=== PATIENT | female | born 1985 | race Caucasian/White ===

== ENCOUNTER 2016-12-29 00:10 | Inpatient (IN) | payer OTHER ==
[2016-12-29] MEDS ORDERED: OLIVE OIL 118 ML BTL MISC PRN (00:58)
[2016-12-29] MEDS ORDERED: OXYTOCIN/RINGERS LACTATE 1,000 ML IV PRN (00:58)
[2016-12-29] MEDS ORDERED: TERBUTALINE SULFATE 1 MG/ML VIAL IV PRN (00:58)
[2016-12-29] MEDS ORDERED: EPSOM SALT 454 GM TP PRN (00:58)
[2016-12-29] MEDS ORDERED: LIDOCAINE 1% 30 ML SDV SC PRN (00:58)
--- NOTE | 2016-12-29 01:14 | OBPROG ---
OBG Progress Note Assessment/Plan: Assessment:clear fluid leaking vaginally exam 2-3/90/-2 cephalic irregular contractions feeling pain all in lower abdomen pain well managed discussed pitocin to assist with regular labor patient and family in agreement with poc abdomen soft on palpation elevated bp on admission denies PIH symptoms PIH labs completed on admission Plan:pitocin per protocol 12/29/16 01:12 12/29/16 01:15 Subjective: I am feeling ok. I can still walk and talk through my contractions. Nitrazine was positive. Amnisure sent. Clear fluid leaking after vaginal exam. - SVE Dilation (cm): 2 Effacement (%): 90 Station: -2 Current Contraction Pattern: Irregular FHR (bpm): 135 FHR Pattern Variability: Moderate FHR Category: 1 Membranes: SROM Amniotic Fluid Color: Clear - Physical Exam General Appearance: WD/WN, alert, no apparent distress Respiratory: chest non-tender, lungs clear, normal breath sounds Cardiac/Chest: regular rate, rhythm Abdomen: normal bowel sounds Membranes: SROM Amniotic Fluid Color: clear Extremities: normal range of motion, Tan's sign (negative bilaterally dtrs1+ bilaterally) DTR- Lower Extremities: Knee (R): 1+, Knee (L): 1+ Skin: normal color, warm/dry Neuro/Psych: no motor/sensory deficits, alert, normal mood/affect, oriented x 3 ICD10 Worksheet Patient Problems: Problems Problem Status Onset TERM LABOR PROM Acute
[2016-12-29] MEDS ORDERED: LIDOCAINE 1% 30 ML SDV ONE (01:20)
[2016-12-29] MEDS ORDERED: OLIVE OIL 118 ML BTL ONE (01:20)
[2016-12-29] MEDS ORDERED: TERBUTALINE SULFATE 1 MG/ML VIAL ONE (01:21)
[2016-12-29] MEDS ORDERED: OXYTOCIN 10 UNIT/ML VIAL ONE (01:21)
[2016-12-29] MEDS ORDERED: MISOPROSTOL 200 MCG TAB ONE (01:21)
[2016-12-29] MEDS ORDERED: AMMONIA AROMATIC 1 EACH AMP IH ONE (01:21)
[2016-12-29 01:23] LABS: % IMMATURE GRANULYOCYTES 0.9 % (0.0-1.1); ABSOLUTE IMMATURE GRANULOCYTES 0.13 10^3/uL (0.00-0.10); ADD DIFF? NO; ADD MORPH? NO; ADD SCAN? NO; ATYPICAL LYMPHOCYTE FLAG 0 (0-99); FRAGMENT RBC FLAG 0 (0-99); HEMATOCRIT 37.8 % (38.0-47.0); LEFT SHIFT FLG 0 (0-99); LIPEMIA HEMOLYSIS FLAG 90 (0-99); MEAN CELL HEMOGLOBIN 30.2 pg (27.9-34.1); MEAN CELL HEMOGLOBIN CONCENTR. 34.4 g/dL (32.4-36.7); MEAN CELL VOLUME 87.7 fL (81.5-99.8); MEAN PLATELET VOLUME 11.8 fL (8.7-11.7); PLATELET CLUMPS FLAG 0 (0-99); PLATELET COUNT 166 10^3/uL (150-400); RED BLOOD CELL COUNT 4.31 10^6/uL (4.18-5.33); RED CELL DISTRIBUTION WIDTH 12.9 % (11.5-15.2)
[2016-12-29] MEDS: LR 1,000 ML IV PRN ×2 (01:25→09:25)
[2016-12-29] MEDS ORDERED: OXYTOCIN/RINGERS LACTATE 500 ML IV SCH (01:30)
[2016-12-29 01:42] LABS: ALANINE AMINOTRANSFERASE 30 IU/L (9-52); ASPARTATE AMINOTRANSFERASE 30 IU/L (14-46); BILIRUBIN,TOTAL 0.6 mg/dL (0.1-1.4); BILIRUBIN-CONJUGATED 0.4 mg/dL (0.0-0.5); BILIRUBIN-UNCONJUGATED 0.2 mg/dL (0.0-1.1); CREATININE 0.6 mg/dL (0.6-1.0); GLOMERULAR FILTRATION RATE > 60; LACTATE DEHYDROGENASE 546 IU/L (313-618); URIC ACID 6.2 mg/dL (2.5-6.8)
--- NOTE | 2016-12-29 01:54 | GHP ---
[f rep st] HISTORY AND PHYSICAL DATE OF ADMISSION: 12/29/2016 The patient is a 31-year-old, 1, para 0, with an EDC of 01/05/2017 which gives her a gestati onal age of 39 weeks, who comes in with complaints of rupture of membranes since 1330 on 12/28/2016 with clear fluid. States feeling positive movement. Leaking clear fluid since 1330 on 2016, denies positive bloody show, but some pinkish mucus-like discharge. ALLERGIES: None. MEDICATIONS: Patient is taking is just vitamins. MEDICAL HISTORY: Patient has a previous history of sports-induced asthma, has increased BMI. SURGICAL HISTORY: Nedrow teeth extraction in high school, with no significant difficulties with gurwinder t. FAMILY HISTORY: Noncontributory. HISTORY: Elevated 1-hour GTT with 3-hour within normal limits. GYNECOLOGICAL HISTORY: Previous abnormal Pap in high school. Re-Paps since then have all been nega tive. Previous OCP use. LABS: Patient is O positive. Antibody negative. RPR is nonreactive. Rubella is immune. Hepatiti s is negative. HIV is negative. Trio screen was negative. Verifi was negative. Pap was within no rmal limits. Urine culture was within normal limits. Gonorrhea and chlamydia were negative. PHYSICAL EXAMINATION: GENERAL: The patient is awake, alert, oriented x3. LUNGS: Clear bilaterall y. ABDOMEN: Bowel sounds are positive in all 4 quadrants. Abdomen soft on palpation. EXTREMITIES : DTRs are 1+ bilaterally with no clonus and Homans sign is negative bilaterally. Elevated blood p ressures on admission. Denies PIH symptoms. ASSESSMENT: The patient is term in early labor, with spontaneous rupture of membranes at 1330 on . PLAN OF CARE: 1. PIH labs were drawn. 2. GBS negative. 3. Pitocin per protocol. 4. Discussed plan of care with patient and family, and received consent. 5. Expectant management of labor. 6. Consult Dr. Justina Matt as needed for plan of care. /[id number]/MODL
[2016-12-29] MEDS ORDERED: fentaNYL 2MCG/ML/BUP 0.1% RTU 100 ML BAG EP ONE (03:58)
[2016-12-29] MEDS ORDERED: PHENYLEPHRINE HCL 100 MCG/ML SYR IVP PRN (04:36)
--- NOTE | 2016-12-29 04:36 | PREANESOB ---
Obstetric Pre-Anesthesia Info - General Info Proposed Procedure: ARACELI : 1 Para: 0 - Info Status: Full Term, [place] Monitors: External FHR Pattern: Reassuring - Labor Status Cervical Dilation per last OB SVE: 2 Station per last OB SVE: -2 Amniotic Fluid Color: Clear PIH: No Magnesium Sulfate in Use: No Indications for Labor Analgesia: Pain Control Labor Epidural: Proposed Anesthesia Allergies/Adverse Reactions: Allergy/AdvReac Type Severity Reaction Status Date / Time No Known Allergies Allergy Unverified 07/06/16 07:15 Home Medications: Medication Instructions Recorded Vit27&Calcium/Iron/FA 1 tab PO DAILY 12/29/16 [] Visit Medications: Generic Name Dose Route Start Last Admin Trade Name Freq PRN Reason Stop Dose Admin Lactated Ringer's 1,000 mls @ 0 mls/hr 12/29/16 00:58 12/29/16 01:25 Lr IV 06/27/17 00:57 1,000 mls PRN PRN Administration SEE PROTOCOL CONDITIONS Protocol Per Protocol Oxytocin/Lactated Ringer's 1,000 mls @ 150 mls/hr 12/29/16 00:58 Pitocin 20 Units/Lr (Premix) IV PRN PRN Post- bleeding Oxytocin/Lactated Ringer's 500 mls @ 0 mls/hr 12/29/16 01:30 12/29/16 01:25 Pitocin 30 Units/Lr (Premix) IV 06/27/17 01:29 500 mls CONT ROBERT Administration Protocol Per Protocol Ibuprofen 600 mg 12/29/16 00:58 Motrin PO 06/27/17 00:57 Q6HRS PRN post , inflammation Lidocaine HCl 30 ml 12/29/16 00:58 Lidocaine Hcl 1% SC 06/27/17 00:57 ONCE PRN Episiotomy Magnesium Sulfate 454 gm 12/29/16 00:58 Epsom Salt TP 06/27/17 00:57 PRN PRN perineal discomfort [place] Oil 118 ml 12/29/16 00:58 Sweet Oil MISC 06/27/17 00:57 ONCE PRN preneal massage Terbutaline Sulfate 0.25 mg 12/29/16 00:58 Brethine IV 06/27/17 00:57 ONCE PRN Tachysystole Discontinued Medications Generic Name Dose Route Start Last Admin Trade Name Freq PRN Reason Stop Dose Admin Ammonia (Aromatic Spirit) Confirm 12/29/16 01:21 Ammonia Aromatic Administered 12/29/16 01:22 Dose 1 each IH .STK-MED ONE Ephedrine Sulfate Confirm 12/29/16 01:21 Ephedrine Sulfate Administered 12/29/16 01:22 Dose 50 mg .ROUTE .STK-MED ONE Fentanyl/Bupivacaine HCl Confirm 12/29/16 03:58 Fentanyl/Bupivacaine/Ns 2 Mcg/Ml 0.1% (Premix Administered 12/29/16 03:59 Dose 100 ml EP .STK-MED ONE Lidocaine HCl Confirm 12/29/16 01:20 Lidocaine Hcl 1% Administered 12/29/16 01:21 Dose 30 ml .ROUTE .STK-MED ONE Misoprostol Confirm 12/29/16 01:21 Cytotec Administered 12/29/16 01:22 Dose 1,000 mcg .ROUTE .STK-MED ONE [place] Oil Confirm 12/29/16 01:20 Sweet Oil Administered 12/29/16 01:21 Dose 118 ml .ROUTE .STK-MED ONE Oxytocin Confirm 12/29/16 01:21 Pitocin Administered 12/29/16 01:22 Dose 30 unit .ROUTE .STK-MED ONE Terbutaline Sulfate Confirm 12/29/16 01:21 Brethine Administered 12/29/16 01:22 Dose 1 mg .ROUTE .STK-MED ONE - Focused Exam Height/Weight (Nursing): Height 157.48 cm Weight 102.512 kg Labs: 12/29/16 01:15 12/29/16 01:00 Patient ABO/Rh O POSITIVE 12/29/16 01:15 Uric Acid 6.2 mg/dL (2.5-6.8) 12/29/16 01:00 Total Bilirubin 0.6 mg/dL (0.1-1.4) 12/29/16 01:00 Conjugated Bilirubin 0.4 mg/dL (0.0-0.5) 12/29/16 01:00 Unconjugated Bilirubin 0.2 mg/dL (0.0-1.1) 12/29/16 01:00 AST 30 IU/L (14-46) 12/29/16 01:00 ALT 30 IU/L (9-52) 12/29/16 01:00 Lactate Dehydrogenase 546 IU/L (313-618) 12/29/16 01:00
--- NOTE | 2016-12-29 04:44 | POSTANESTH ---
Post Anesthetic Evaluation Cardiovascular Status: Normal, Stable, Similar to Pre-Op Cond Respiratory Status: Normal, Stable, Similar to Pre-op Cond. Level of Consciousness/Mental Status: Can Participate in Eval, Alert and Oriented Pain Control: Adequate, Prn Tx Ordered Nausea/Vomiting Control: Adequate, Prn Tx Ordered Complications Possibly Related to Anesthesia: None Noted (Excellent analgesia.)
[2016-12-29] MEDS ORDERED: LR 500 ML IV SCH (05:00)
[2016-12-29] MEDS ORDERED: fentaNYL 2MCG/ML/BUP 0.1% RTU 100 ML EP SCH (05:00)
--- NOTE | 2016-12-29 06:56 | OBPROG ---
OBG Progress Note Assessment/Plan: Assessment:clear fluid leaking vaginally exam 3-4/90/-2 cephalic pitocin infusing at [address] denies pain pain well managed abdomen soft on palpation iupc placed asynclitic position? OP possibly head not well applied to the cervix discussed iupc head placement in the pelvis minimal change in the cervix with patient and family verbalized understanding mvus after placement 200mvus elevated tone 25 will decrease pitocin to 12 mu to decrease resting tone occasional early deceleration with contractions cat 1 fhr Plan:consulted, report to oncoming dr. fredi patino 12/29/16 01:12 12/29/16 01:15 12/29/16 06:50 12/29/16 06:57 Subjective: Doing well feeling comfortable with epidural in place Objective: 12/29/16 01:15 12/29/16 01:00 Patient ABO/Rh O POSITIVE 12/29/16 01:15 Uric Acid 6.2 mg/dL (2.5-6.8) 12/29/16 01:00 Total Bilirubin 0.6 mg/dL (0.1-1.4) 12/29/16 01:00 Conjugated Bilirubin 0.4 mg/dL (0.0-0.5) 12/29/16 01:00 Unconjugated Bilirubin 0.2 mg/dL (0.0-1.1) 12/29/16 01:00 AST 30 IU/L (14-46) 12/29/16 01:00 ALT 30 IU/L (9-52) 12/29/16 01:00 Lactate Dehydrogenase 546 IU/L (313-618) 12/29/16 01:00 - SVE Dilation (cm): 3 Effacement (%): 90 Station: -2 Current Contraction Pattern: Regular FHR (bpm): 145 FHR Pattern Variability: Moderate FHR Category: 1 Membranes: SROM Amniotic Fluid Color: Clear ICD10 Worksheet Patient Problems: Problems Problem Status Onset TERM LABOR PROM Acute
[2016-12-29] MEDS ORDERED: ACETAMINOPHEN 500 MG TAB PO ONE (09:30)
[2016-12-29] MEDS ORDERED: ONDANSETRON 4 MG/2 ML VIAL ONE (11:13)
[2016-12-29] MEDS ORDERED: ONDANSETRON 4 MG/2 ML VIAL IVP PRN (11:18)
--- NOTE | 2016-12-29 11:23 | OBPROG ---
OBG Progress Note Assessment/Plan: Assessment: IUP at 39wks, SROM at 1330 on 12/28 now in active labor on pit for augmentation GBS - ARACELI and recent increased pressure - using boluses Plan: Doing ok - some improvement with bolus 12/29/16 11:19 Subjective: Pt feeling dramatic change in last 1/2 hour with rectal pressure. Pushed bolus once and will readminister prn. some nausea Objective: 12/29/16 01:15 12/29/16 01:00 Patient ABO/Rh O POSITIVE 12/29/16 01:15 Uric Acid 6.2 mg/dL (2.5-6.8) 12/29/16 01:00 Total Bilirubin 0.6 mg/dL (0.1-1.4) 12/29/16 01:00 Conjugated Bilirubin 0.4 mg/dL (0.0-0.5) 12/29/16 01:00 Unconjugated Bilirubin 0.2 mg/dL (0.0-1.1) 12/29/16 01:00 AST 30 IU/L (14-46) 12/29/16 01:00 ALT 30 IU/L (9-52) 12/29/16 01:00 Lactate Dehydrogenase 546 IU/L (313-618) 12/29/16 01:00 on exam, head is asynclitic with concern for LOP position, no caput noted - SVE Dilation (cm): 7 (7-8) Effacement (%): 90 Station: 0 Current Contraction Pattern: Regular (was q2 low amplitude with inadequate MVUs , pit decreased from 22 to 20 and now q 2-3 min) FHR (bpm): 130 FHR Pattern Variability: Moderate FHR Category: 1 Membranes: SROM Amniotic Fluid Color: Blood Tinged ICD10 Worksheet Patient Problems: Problems Problem Status Onset TERM LABOR PROM Acute
--- NOTE | 2016-12-29 12:39 | OBPROG ---
OBG Progress Note Assessment/Plan: Assessment: IUP at 39wks, SROM at 1330 on 12/28 now in active labor on pit for augmentation GBS - ARACELI - used boluses with relief but now starting to feel pressure again Plan: Doing ok - will begin pushing soon 12/29/16 11:19 12/29/16 12:35 Subjective: better with pressure but starting again Objective: 12/29/16 01:15 12/29/16 01:00 Patient ABO/Rh O POSITIVE 12/29/16 01:15 Uric Acid 6.2 mg/dL (2.5-6.8) 12/29/16 01:00 Total Bilirubin 0.6 mg/dL (0.1-1.4) 12/29/16 01:00 Conjugated Bilirubin 0.4 mg/dL (0.0-0.5) 12/29/16 01:00 Unconjugated Bilirubin 0.2 mg/dL (0.0-1.1) 12/29/16 01:00 AST 30 IU/L (14-46) 12/29/16 01:00 ALT 30 IU/L (9-52) 12/29/16 01:00 Lactate Dehydrogenase 546 IU/L (313-618) 12/29/16 01:00 - SVE Dilation (cm): 10 Effacement (%): 100 Station: +2 Current Contraction Pattern: Regular (q3min on 20 pit) FHR (bpm): 130 FHR Pattern Variability: Moderate FHR Category: 2 (small variables, very reassuring) Membranes: SROM Amniotic Fluid Color: Blood Tinged ICD10 Worksheet Patient Problems: Problems Problem Status Onset TERM LABOR PROM Acute
[2016-12-29] MEDS: IBUPROFEN 600 MG TAB PO PRN ×2 (15:17→21:14)
--- NOTE | 2016-12-29 15:42 | OBPROC ---
- Labor and Delivery Onset of Contractions Date: 12/29/16 Onset of Contractions Time: 03:30 Onset of Contractions Type: Spontaneous (but then augmented with Pitocin after 12 hours ROM without clear labor) Rupture of Membranes Date: 12/28/16 Rupture of Membranes Time: 13:30 Rupture of Membranes Type: Spontaneous Amniotic Fluid Color: Clear Dilation Complete Time: 12:29 Delivery Type: Spontaneous Placenta Delivery Date: 12/29/16 Placenta Delivery Time: 14:37 Episiotomy/Laceration: 1st Degree (first degree bilateral periurethral, second degree MLL) Repair: 3-0, Vicryl EBL: 300 Complications: None - Medications Labor Augmentation/Induction Meds Used: Pitocin Labor Augmentation/Induction Indication: Other (Specify) (protracted labor after SROM) Anesthesia: Epidural - Info Infant A Delivery Date: 12/29/16 Delivery Time: 14:36 Sex of : Male (Ariel) Score (1 Min): 8 Score (5 Min): 9
[2016-12-29] MEDS ORDERED: ACETAMINOPHEN 325 MG TAB PO PRN (15:50)
[2016-12-29 21:02] VITALS: O2SAT 94
[2016-12-29] MEDS: DOCUSATE SODIUM 100 MG CAP PO PRN (21:14)
[2016-12-30] MEDS: IBUPROFEN 600 MG TAB PO PRN ×4 (04:07→23:31)
--- NOTE | 2016-12-30 08:50 | SOAPPROG ---
SOAP Progress Note Assessment/Plan: Assessment: well voiding without difficulty pain well managed ff@u scant rubra lochia Plan:pp day 1 expectant management 12/29/16 01:12 12/29/16 01:15 12/29/16 06:50 12/29/16 06:57 12/30/16 08:48 Subjective: doing well denies difficulties. well. voiding well. Pain well managed Objective: Vital Signs Temp Pulse Resp BP Pulse Ox 36.3 C 116 H 16 115/83 H 94 12/30/16 07:19 12/30/16 07:19 12/30/16 07:19 12/30/16 07:19 12/29/16 20:00 Laboratory Results 12/30/16 04:15 12/29/16 01:00 12/29/16 12/30/16 12/31/16 05:59 05:59 05:59 Output Total 300 Balance -300 Physical Exam - Physical Exam General Appearance: WD/WN, alert, no apparent distress Abdomen: other (FF@u) Pelvic Exam: vaginal bleeding (scant rubra lochia) Skin: normal color, warm/dry Extremities: normal range of motion, Tan's sign (negative bilaterally) Neuro/Psych: no motor/sensory deficits, alert, normal mood/affect, oriented x 3 ICD10 Worksheet Patient Problems: Problems Problem Status Onset (spontaneous vaginal delivery) Acute
[2016-12-30] MEDS: DOCUSATE SODIUM 100 MG CAP PO PRN ×2 (10:03→23:31)
[2016-12-30] MEDS: IRON POLYSAC/IRON HEME 28 MG TAB PO SCH (10:03)
[2016-12-31] MEDS: IBUPROFEN 600 MG TAB PO PRN (05:43)
[2016-12-31 07:24] VITALS: BP 117/80; PULSE 71; RESP 19; TEMP 98.7
[2016-12-31] MEDS: DOCUSATE SODIUM 100 MG CAP PO PRN (08:55)
[2016-12-31] MEDS: IRON POLYSAC/IRON HEME 28 MG TAB PO SCH (08:55)
--- NOTE | 2016-12-31 10:10 | OBPROG ---
OBG Progress Note Assessment/Plan: Assessment: 31 y/o PPD #2 s/p doing well. Plan: D/c home today with Rx Ibuprofen. Follow-up @ [facility] 4 and 6 weeks. 12/31/16 10:09 Subjective: Karo is doing well today. She has min cramping and perineal soreness controlled with Ibuprofen. Min lochia, ambulating, and voiding without difficulty. Breast feeding is going well and nipples are fine. They are ready to d/c home. Objective: 12/30/16 04:15 12/29/16 01:00 Patient ABO/Rh O POSITIVE 12/29/16 01:15 Uric Acid 6.2 mg/dL (2.5-6.8) 12/29/16 01:00 Total Bilirubin 0.6 mg/dL (0.1-1.4) 12/29/16 01:00 Conjugated Bilirubin 0.4 mg/dL (0.0-0.5) 12/29/16 01:00 Unconjugated Bilirubin 0.2 mg/dL (0.0-1.1) 12/29/16 01:00 AST 30 IU/L (14-46) 12/29/16 01:00 ALT 30 IU/L (9-52) 12/29/16 01:00 Lactate Dehydrogenase 546 IU/L (313-618) 12/29/16 01:00 Temp Pulse Resp BP Pulse Ox 37.1 C 71 19 117/80 94 12/31/16 07:24 12/31/16 07:24 12/31/16 07:24 12/31/16 07:24 12/31/16 07:24 Uterine Position/Fundal Height: Umbilicus -3 Uterine Tone: Firm - Physical Exam General Appearance: WD/WN, alert, no apparent distress Neck: non-tender, full range of motion, supple Respiratory: chest non-tender, lungs clear, normal breath sounds Cardiac/Chest: regular rate, rhythm Abdomen: normal bowel sounds Extremities: swelling (no), Tan's sign (neg) ICD10 Worksheet Patient Problems: Problems Problem Status Onset (spontaneous vaginal delivery) Acute
== END 2016-12-31 11:56 | disposition home or self-care (01) | DRG 775 ==
LOC: OBSVTOIN 00:10 → FLD 00:10 → FOB 18:05
PROVIDERS: ADMIT Advanced Practice Midwife; ATTEND Advanced Practice Midwife
PROC: 0HQ9XZZ Repair Perineum Skin, External Approach (ICD-10-PCS; principal; 2016-12-29)
PROC: 10E0XZZ Delivery of Products of Conception, External Approach (ICD-10-PCS; principal; 2016-12-29)
DX: O70.0 First degree perineal laceration during delivery (principal); Z37.0 Single live birth; Z3A.39 39 weeks gestation of pregnancy
CPT/HCPCS: J2405; J2590; J3105

== ENCOUNTER 2018-08-06 05:55 | Inpatient (IN) | payer OTHER ==
[2018-08-06] MEDS ORDERED: MISOPROSTOL 200 MCG TAB PR PRN (06:01)
[2018-08-06] MEDS ORDERED: TERBUTALINE SULFATE 1 MG/ML VIAL IV PRN (06:01)
[2018-08-06] MEDS ORDERED: EPSOM SALT 454 GM TP PRN (06:01)
[2018-08-06] MEDS ORDERED: IBUPROFEN 600 MG TAB PO PRN (06:01)
[2018-08-06] MEDS ORDERED: OXYTOCIN/RINGERS LACTATE 1,000 ML IV PRN (06:01)
[2018-08-06] MEDS ORDERED: OLIVE OIL 118 ML BTL MISC PRN (06:01)
[2018-08-06] MEDS ORDERED: LIDOCAINE 1% 300 MG/30 ML SDV SC PRN (06:01)
[2018-08-06] MEDS ORDERED: LR 1,000 ML IV PRN (06:01)
[2018-08-06 06:27] LABS: PLATELET COUNT 144 10^3/uL (150-400)
[2018-08-06] MEDS ORDERED: OLIVE OIL 118 ML BTL ONE (07:13)
[2018-08-06] MEDS ORDERED: LIDOCAINE 1% 300 MG/30 ML SDV ONE (07:13)
[2018-08-06] MEDS ORDERED: TERBUTALINE SULFATE 1 MG/ML VIAL ONE (07:14)
[2018-08-06] MEDS ORDERED: MISOPROSTOL 200 MCG TAB ONE (07:14)
[2018-08-06] MEDS ORDERED: OXYTOCIN 10 UNIT/ML VIAL ONE (07:14)
[2018-08-06] MEDS ORDERED: AMMONIA AROMATIC 1 EACH AMP IH ONE (07:14)
[2018-08-06] MEDS ORDERED: OXYTOCIN/LR *LOW DOSE PROTOCOL IV SCH (08:00)
--- NOTE | 2018-08-06 09:24 | PDGENHP ---
History and Physical - Chief Complaint Elective IOL, 39wks - History of Present Illness Karo is a 32 yo today at 39w0d by PALMIRA of 08/09/18 (by LMP cw 8 wk US) - here for elective IOL. Overall uncomplicated - complicated only by migraines which required no meds and elevated BMI. She did elect to skip the Glucola and just do the 3hr GTT as that has happened with each of her prior tests with that. Her first was also overall uncomplicated - Ariel was delivered by uncomplicated , she got into labor spontaneously at 39 wks with him. Only pushed for < 10 minutes, he was [id number]. Labs: O positive Antibody negative 3hr GTT normal RPR NR Rubella immune Hep B Neg HIV neg Trio neg 2016 Standard panel neg GC/C neg Innatal Normal XY Varicella and Parvo immune History Information - Allergies/Home Medication List Allergies/Adverse Reactions: No Known Allergies Allergy (Unverified 07/06/16 07:15) Home Medications: Vit27&Calcium/Iron/FA [] 1 tab PO DAILY 12/29/16 [Last Taken ] I have personally reviewed and updated: family history, medical history, social history, surgical history - Past Medical History Additional medical history: H/o migraines - Surgical History Additional surgical history: None, h/o one prior - Family History Positive for: non-pertinent - Social History Smoking Status: Never smoked Alcohol Use: None Review of Systems Review of Systems: ROS: 10pt was reviewed & negative except for what was stated in HPI & below Physical Exam Physical Exam: Alert, pleasant. Belly soft, gravid, longitudinal lie. SCE 3cm and high in clinic yesterday per Dr. Matt. FHR 135bpm, moderate variability, accels present, no decels. Lab Data & Imaging Review 08/06/18 06:15 WBC 9.48 10^3/uL (3.80-9.50) 08/06/18 06:15 RBC 4.36 10^6/uL (4.18-5.33) 08/06/18 06:15 Hgb 12.8 g/dL (12.6-16.3) 08/06/18 06:15 Hct 38.0 % (38.0-47.0) 08/06/18 06:15 MCV 87.2 fL (81.5-99.8) 08/06/18 06:15 MCH 29.4 pg (27.9-34.1) 08/06/18 06:15 MCHC 33.7 g/dL (32.4-36.7) 08/06/18 06:15 RDW 13.5 % (11.5-15.2) 08/06/18 06:15 Plt Count 144 10^3/uL (150-400) L 08/06/18 06:15 MPV 11.9 fL (8.7-11.7) H 08/06/18 06:15 Neut % (Auto) 66.6 % (39.3-74.2) 08/06/18 06:15 Lymph % (Auto) 24.6 % (15.0-45.0) 08/06/18 06:15 [place] % (Auto) 7.3 % (4.5-13.0) 08/06/18 06:15 Eos % (Auto) 0.4 % (0.6-7.6) L 08/06/18 06:15 Baso % (Auto) 0.3 % (0.3-1.7) 08/06/18 06:15 Nucleat RBC Rel Count 0.0 % (0.0-0.2) 08/06/18 06:15 Absolute Neuts (auto) 6.31 10^3/uL (1.70-6.50) 08/06/18 06:15 Absolute Lymphs (auto) 2.33 10^3/uL (1.00-3.00) 08/06/18 06:15 Absolute Monos (auto) 0.69 10^3/uL (0.30-0.80) 08/06/18 06:15 Absolute Eos (auto) 0.04 10^3/uL (0.03-0.40) 08/06/18 06:15 Absolute Basos (auto) 0.03 10^3/uL (0.02-0.10) 08/06/18 06:15 Absolute Nucleated RBC 0.00 10^3/uL (0-0.01) 08/06/18 06:15 Immature Gran % 0.8 % (0.0-1.1) 08/06/18 06:15 Immature Gran # 0.08 10^3/uL (0.00-0.10) 08/06/18 06:15 Patient ABO/Rh O POSITIVE 08/06/18 06:15 Antibody Screen NEGATIVE 08/06/18 06:15 Assessment & Plan Assessment: 32 yo at 39w0d here for elective IOL. GBS negative. Category I tracing on admission. Pitocin on admission, then she'd like epidural before AROM. Rh pos, Rubella immune. JM
[2018-08-06] MEDS ORDERED: fentaNYL 200 MCG, BUPIVACAINE 0.5% 20 ML in NS 100 ML EP SCH (11:30)
--- NOTE | 2018-08-06 11:36 | PREANESOB ---
Obstetric Pre-Anesthesia Info - General Info : 2 Para: 1 PALMIRA: 08/13/18 Gestational Age: 39 week(s) and 0 day(s) - Info Status: Full Term FHR Pattern: Reassuring - Labor Status Cervical Dilation per last OB SVE: 3 Indications for Labor Analgesia: Pain Control Labor Epidural: Yes Anesthesia Allergies/Adverse Reactions: Allergy/AdvReac Type Severity Reaction Status Date / Time No Known Allergies Allergy Unverified 07/06/16 07:15 Home Medications: Medication Instructions Recorded Vit27&Calcium/Iron/FA 1 tab PO DAILY 12/29/16 [] Ibuprofen [Motrin (*)] 600 mg PO Q6HRS PRN #30 tab 12/31/16 Visit Medications: Generic Name Dose Route Start Last Admin Trade Name Freq PRN Reason Stop Dose Admin Lactated Ringer's 1,000 mls @ 0 mls/hr 08/06/18 06:01 08/06/18 08:01 Lr IV 08/07/18 06:00 1,000 mls PRN PRN Administration SEE PROTOCOL CONDITIONS Protocol Per Protocol Oxytocin/Lactated Ringer's 1,000 mls @ 125 mls/hr 08/06/18 06:01 Pitocin 20 Units/Lr (Premix) IV PRN PRN Post bleeding Oxytocin/Lactated Ringer's 500 mls @ 0 mls/hr 08/06/18 08:00 08/06/18 08:01 Pitocin 30 Units/Lr (Premix) IV 02/02/19 07:59 500 mls CONT ROBERT Administration Protocol Per Protocol Fentanyl 200 mcg/ Bupivacaine 100 mls @ 0 mls/hr 08/06/18 11:30 HCl 20 ml/ Sodium Chloride EP 08/16/18 11:29 CONT ROBERT Protocol As Directed Ibuprofen 600 mg 08/06/18 06:01 Motrin PO ONCE PRN post , pain Lidocaine HCl 300 mg 08/06/18 06:01 Lidocaine Hcl 1% SC 02/02/19 06:00 ONCE PRN episiotomy Magnesium Sulfate 454 gm 08/06/18 06:01 Epsom Salt TP 02/02/19 06:00 Q1H PRN perineal discomfort Misoprostol 800 - 1,000 mcg 08/06/18 06:01 Cytotec MO ONCE PRN Vaginal Atony/Bleeding [place] Oil 118 ml 08/06/18 06:01 Sweet Oil MISC 02/02/19 06:00 ONCE PRN perineal massage Terbutaline Sulfate 0.25 mg 08/06/18 06:01 Brethine IV 02/02/19 06:00 ONCE PRN Tachysystole Discontinued Medications Generic Name Dose Route Start Last Admin Trade Name Gusq PRN Reason Stop Dose Admin Ammonia (Aromatic Spirit) Confirm 08/06/18 07:14 Ammonia Aromatic Administered 08/06/18 07:15 Dose 1 each IH .STK-MED ONE Lidocaine HCl Confirm 08/06/18 07:13 Lidocaine Hcl 1% Administered 08/06/18 07:14 Dose 300 mg .ROUTE .STK-MED ONE Misoprostol Confirm 08/06/18 07:14 Cytotec Administered 08/06/18 07:15 Dose 1,000 mcg .ROUTE .STK-MED ONE [place] Oil Confirm 08/06/18 07:13 Sweet Oil Administered 08/06/18 07:14 Dose 118 ml .ROUTE .STK-MED ONE Oxytocin Confirm 08/06/18 07:14 Pitocin Administered 08/06/18 07:15 Dose 40 unit .ROUTE .STK-MED ONE Terbutaline Sulfate Confirm 08/06/18 07:14 Brethine Administered 08/06/18 07:15 Dose 1 mg .ROUTE .STK-MED ONE - Anesthesia History Response to Local Anesthetics: Normal Anesthesia & Operative History: No Prior Problems - Vital Signs Height/Weight (Nursing): Height 157.48 cm Weight 106.594 kg - Focused Exam Neck exam: FROM Mallampati Score: Class 2 Mouth exam: normal dental/mouth exam Pulmonary: no respiratory distress Cardiovascular: regular rate and rhythym Labs: 08/06/18 06:15 Patient ABO/Rh O POSITIVE 08/06/18 06:15 - Plan Consent Signed and on Chart: Yes Patient/Guardian Understands and Agrees to Plan: Yes
[2018-08-06] MEDS ORDERED: PHENYLEPHRINE HCL 100 MCG/ML SYR IVP PRN (13:05)
[2018-08-06] MEDS ORDERED: NALOXONE HCL 0.4 MG/ML INJ IVP PRN (13:05)
[2018-08-06] MEDS ORDERED: LR 500 ML IV SCH (13:30)
[2018-08-06] MEDS ORDERED: fentaNYL 2MCG/ML/BUP 0.1% RTU 100 ML EP SCH (13:30)
[2018-08-06] MEDS ORDERED: DOCUSATE SODIUM 100 MG CAP PO PRN (23:47)
[2018-08-06] MEDS ORDERED: SIMETHICONE 80 MG TAB CHEW PO PRN (23:47)
[2018-08-06] MEDS ORDERED: HYDROCORTISONE 0.5% CREAM TP PRN (23:47)
[2018-08-06] MEDS ORDERED: oxyCODONE IR 5 MG TAB PO PRN (23:47)
--- NOTE | 2018-08-07 00:07 | OBDEL ---
Info Type: Vaginal Presentation at Delivery: Vertex L&D Analgesia/Anesthesia Type: Epidural GBS+: No Intrapartum Medications: Generic Name Dose Route Start Last Admin Trade Name Freq PRN Reason Stop Dose Admin Lactated Ringer's 1,000 mls @ 0 mls/hr 08/06/18 06:01 08/06/18 08:01 Lr IV 08/07/18 06:00 1,000 mls PRN PRN Administration SEE PROTOCOL CONDITIONS Protocol Per Protocol Oxytocin/Lactated Ringer's 500 mls @ 0 mls/hr 08/06/18 08:00 08/06/18 08:01 Pitocin 30 Units/Lr (Premix) IV 02/02/19 07:59 500 mls CONT ROBERT Administration Protocol Per Protocol Fentanyl 200 mcg/ Bupivacaine 100 mls @ 0 mls/hr 08/06/18 11:30 08/06/18 11: 59 HCl 20 ml/ Sodium Chloride EP 08/16/18 11:29 100 mls CONT ROBERT Administration Protocol As Directed Indications for Delivery: Elective Vaginal Delivery - Delivery Provider Delivery Physician/CNM: Dez Mcnair - Labor and Delivery Onset of Contractions Date: 08/06/18 Onset of Contractions Time: 09:00 Onset of Contractions Type: Augmented Rupture of Membranes Date: 08/06/18 Rupture of Membranes Time: 13:20 Rupture of Membranes Type: Artificial Amniotic Fluid Color: Clear Dilation Complete Date: 08/06/18 Dilation Complete Time: 22:00 Placenta Delivery Date: 08/06/18 Placenta Delivery Time: 22:53 Total Hours of Labor: 13 Non-surgical Procedures: Amniotomy, IUPC Laceration: 2nd Degree, Other (Specify) (Periurethral) Repair: 3-0, 4-0, Vicryl Vaginal Sponge Count Correct: Yes Vaginal Needle Count Correct: Yes Vaginal Sweep Performed: Yes EBL: 250cc Delivery Events: None Delivery Comment: Uncomplicated - pushed 4 times. Cord Gases: Not sent. - Medications Labor Augmentation/Induction Methods Used: Pitocin Labor Augmentation/Induction Indication: Elective Data PALMIRA: 08/13/18 Gestational Age: 39 week(s) and 1 day(s) [place] Delivery Date: 08/06/18 Delivery Time: 22:47 Sex of : Female [place] Weight (gm): 3074 kg Score (1 Min): 8 Score (5 Min): 9 Shoulder Dystocia Time Head Delivered: 22:47 Time Body Delivered: 22:47 ICD10 Worksheet Patient Problems: Problems Problem Status Onset (spontaneous vaginal delivery) Acute
[2018-08-07] MEDS: ACETAMINOPHEN 325 MG TAB PO SCH ×3 (05:46→14:26)
--- NOTE | 2018-08-07 11:15 | OBPP ---
Progress Note Assessment/Plan: Assessment: ppd# 1 s/p breast feeding rh positive routine post care Plan: 08/07/18 11:13 Subjective/ Course: 08/07/18 11:14 patient is doing well. pain is well controlled. normal lochia. denies headache and changes in vision. breast feeding is going well. Objective: 08/06/18 06:15 Patient ABO/Rh O POSITIVE 08/06/18 06:15 Temp Pulse Resp BP Pulse Ox 36.7 C 74 18 126/81 H 97 08/07/18 08:00 08/07/18 08:00 08/07/18 05:45 08/07/18 08:00 08/07/18 08:00 Physical Exam - Physical Exam Neck: non-tender, full range of motion, supple Respiratory: chest non-tender, lungs clear, normal breath sounds Cardiac/Chest: normal peripheral pulses, regular rate, rhythm Abdomen: normal bowel sounds, non-tender, distended (firm and non tender) Extremities: normal range of motion, non-tender, normal inspection, normal capillary refill Skin: normal color, warm/dry Neuro/Psych: no motor/sensory deficits, alert, normal mood/affect, oriented x 3
[2018-08-07] MEDS: IBUPROFEN 600 MG TAB PO SCH ×2 (11:52→14:26)
--- NOTE | 2018-08-07 15:54 | POSTANESTH ---
Post Anesthetic Evaluation Cardiovascular Status: Normal, Stable Respiratory Status: Normal, Stable Level of Consciousness/Mental Status: Can Participate in Eval Pain Control: Adequate, Prn Tx Ordered Nausea/Vomiting Control: Adequate, Prn Tx Ordered Complications Possibly Related to Anesthesia: None Noted (Pt doing well. No back pain, no headache. Full sensory and motor function in lower extremities.)
--- NOTE | 2018-08-08 09:21 | OBPP ---
Progress Note Assessment/Plan: Assessment: 32 G2now P2 PPD#2 s/p after elective IOL, doing great. BPs slightly elevated but stable. Plan: DC home, Standard pp instructions reviewed, including ssx pp depression. See dc summary. Callie Reardon MD, FACOG [facility] 08/08/18 09:17 Subjective/ Course: 08/07/18 11:14 patient is doing well. pain is well controlled. normal lochia. denies headache and changes in vision. breast feeding is going well. 08/08/18 09:19 Pt doing well. Ambulating and voiding without difficulty. Mod lochia. going well, ready to go home. No SEALS, no vis changes, no epigastric or RUQ pain. No hx of depression. 08/08/18 10:04 Objective: 08/06/18 06:15 Patient ABO/Rh O POSITIVE 08/06/18 06:15 Temp Pulse Resp BP Pulse Ox 36.2 C 66 16 137/86 H 96 08/08/18 08:00 08/08/18 08:00 08/08/18 08:00 08/08/18 08:00 08/08/18 08:00 gen - pleasant, NAD CV - RRR chest - CTAB abd - soft, + BS, fundus firm at u-2 ext - 2+ pitting edema, no calf tenderness, Tan's neg Temp Pulse Resp BP Pulse Ox 36.2 C 66 16 126/80 H 96 08/08/18 08:00 08/08/18 08:00 08/08/18 08:00 08/08/18 10:09 08/08/18 08:00 Uterine Position/Fundal Height: Umbilicus -2 Uterine Tone: Firm
--- NOTE | 2018-08-08 09:31 | OBGCSDC ---
General Delivery Information - General Info : 2 Para: 2 Abortions: 0 Type: Vaginal L&D Analgesia/Anesthesia Type: Epidural Admission Date: 08/06/18 Labs: Patient ABO/Rh O POSITIVE 08/06/18 06:15 Hct 38.0 % (38.0-47.0) 08/06/18 06:15 - Hospital Course : 08/07/18 11:14 patient is doing well. pain is well controlled. normal lochia. denies headache and changes in vision. breast feeding is going well. 08/08/18 09:19 Pt doing well. Ambulating and voiding without difficulty. Mod lochia. going well, ready to go home. Vaginal - Delivery Provider Delivery Physician/CNM: Dez Mcnair - Diagnosis Labor: Augmented Rupture of Membranes Type: Artificial Amniotic Fluid Color: Clear Laceration: 2nd Degree, Other (Specify) (Periurethral) Repair: 3-0, 4-0, Vicryl Delivery Events: None - Procedures Non-surgical Procedures: Amniotomy, IUPC - Delivery Non-surgical Procedures: Amniotomy, IUPC EBL: 250cc [place] Data [place]: 08/13/18 Gestational Age: 39 week(s) and 2 day(s) [place] Delivery Date: 08/06/18 Delivery Time: 22:47 Sex of : Female [place] Weight (gm): 3074 kg Score (1 Min): 8 Score (5 Min): 9 Discharge Information - Discharge Information Instruction/Follow Up: See Instruction Sheet, Four Weeks (mood check with [facility] at [facility]), Six Weeks (full exam with physician at [facility])
[2018-08-08 10:10] VITALS: BP 126/80
[2018-08-08] MEDS: ACETAMINOPHEN 325 MG TAB PO SCH ×2 (10:11→10:12)
[2018-08-08] MEDS: IBUPROFEN 600 MG TAB PO SCH (10:12)
== END 2018-08-08 11:15 | disposition home or self-care (01) | DRG 807 ==
LOC: FLD 05:55 → FOB 08-07 03:58
PROVIDERS: ADMIT Obstetrics & Gynecology; ATTEND Obstetrics & Gynecology
DX: O70.1 Second degree perineal laceration during delivery (principal); Z37.0 Single live birth; Z3A.39 39 weeks gestation of pregnancy
CPT/HCPCS: J2590; J3010; J3105